=== PATIENT | male | born 1960 | race Caucasian/White ===

== ENCOUNTER 2017-07-18 05:17 | Day surgery (SDC) | payer OTHER ==
[~2017-07-18] VITALS: Ht 172.7 cm; Wt 109.8 kg
--- NOTE | ~2017-07-18 | O ---
[facility] [place] [address] OPERATIVE REPORT Name: HOWARD PEDERSEN Abby Room #: DEP [facility].#: [id number] Admission: 07/18/17 Attend Phys: Dereje Wright MD Discharge: 07/18/17 Date of : 64 Report #: [id number] THIS REPORT FOR: //name// CC: David Harp DO Luis Eduardo Dereje Wright DATE OF SERVICE: 07/18/2017 PREOPERATIVE DIAGNOSIS: Right lower lid lesion. POSTOPERATIVE DIAGNOSES: Right lower lid lesion with nasolacrimal duct obstruction of common canaliculus, extensive nasal septal perforation. DIRECTOR IT PROJECT: None. ANESTHESIA: General. PROCEDURE: Excision of lesion of right lower lid with flap repair, nasal surgical video endoscopy. SURGEON: Dereje Wright M.D. INDICATIONS FOR SURGERY: This pleasant 57-year-old HIV positive gentleman has a mass in his medial right lower lid directly inferior to his inferior canaliculus that appears to be a sudoriferous inclusion cyst and not dacryocystitis. He presents today for excision of this lesion with potential recanalization of his lacrimal outflow tract with nasal surgical video endoscopy if the tract truly involves the tear drainage apparatus. Informed consent was obtained to include but not limited to the potential risk for loss of vision, bleeding, infection, failure to improve the problem, the potential need for further surgery or treatment. DESCRIPTION OF PROCEDURE: The patient was taken to the operating room where the right medial canthal area was anesthetized with Xylocaine with epinephrine, mixed with Marcaine and Wydase. The right lateral wall of the nose was similarly anesthetized. The nose was packed with Afrin soaked cottonoids on the right side. The inferior punctum was then dilated with a punctum dilator. A size 1 Duenas probe was then passed through the punctum and through the horizontal canaliculus until it met a hard stop at the common canaliculus. The common canaliculus appeared to be completely occluded. The superior punctum was dilated and the same finding was observed. Namely that the lacrimal apparatus was completely [facility] [address] [place] [address] OPERATIVE REPORT Name: NUVIAHOWARD Abby Room #: DEP [facility]..#: [id number] Admission: 07/18/17 Attend Phys: Dereje Wright MD Discharge: 07/18/17 Date of : 64 Report #: [id number] obstructed. The patient's initial complaint concerned the mass, he does not complain of tearing. So the decision was made to excise the lesion and repair of that defect. The lesion was then approached transconjunctivally. It was filled with cloudy, but not infected material such as one would expect to see in an inclusion cyst. The lesion after excision was dried with pinpoint monopolar cautery. The flap was then advanced and closed posteriorly. It was left open at the inferior punctum, which was enlarged, to allow the tract to drain as the lesion was going to recollect. The cottonoids were removed from the nose and the nasal vault inspected. A large anteriorly placed nasal septal perforation was visible. Extensive injection of his nasal mucosa was encountered throughout. There was no mass in the area of the middle or inferior meatus. The wounds were then cleaned and dressed with erythromycin ointment and the patient subsequently transported to the recovery area having tolerated the procedure well. <ELECTRONICALLY SIGNED> By: Dereje Wright MD 07/25/17 0614 1533 1614 Dereje Wright MD /nt
--- NOTE | ~2017-07-18 | EKG ---
[address] [address] ELECTROCARDIOGRAM REPORT Name: HOWARD PEDERSEN Room #: 150-4 [facility]#: [id number] Admission: 07/18/17 Attend Phys: Dereje Wright MD Discharge: Date of : 64 Report #: [id number] THIS REPORT FOR: //name// [facility] Test Date: 2017-07-18 Test Time: 13:23:57 Pat Name: HOWARD PEDERSEN Department: Room: 150 Gender: M Scheduling Analyst: GEMMA : 1960 Requested By: Dereje Wright Order Number: [id number] MD: Toni Ramirez Measurements Intervals [place] Rate: 64 P: 78 MI: 132 QRS: 36 QRSD: 101 T: 12 QT: 397 QTc: 410 Interpretive Statements Sinus rhythm Probable left atrial enlargement No previous ECG available for comparison Electronically Signed On 07-18-2017 15:07:20 [employer]AT SHE[employer] by Toni Ramirez [email or web address] <ELECTRONICALLY SIGNED> By: Toni Ramirez MD 07/18/17 1507 1323 1323 Toni Ramirez MD /LILLY
--- NOTE | ~2017-07-18 | S ---
[facility] [place] [address] SURGICAL PATH RPT PROCEDURE Name: HOWARD WEBB Abby Room #: DEP [facility] MCe.#: [id number] Admission: 07/18/17 Date of : 64 Discharge: 07/18/17 Report #: [id number] Path Case #: [id number] PATHOLOGY REPORT COLLECTION DATE: 07/18/2017 RECEIVED DATE: 07/18/2017 SUBMITTING PHYS: Dr. Dereje Wright OTHER PHYS: Dr. Cheo Harp, SPECIMEN(S) RECEIVED: A.R lower lid * * * * * * * * * * * * FINAL DIAGNOSIS: Lesion right lower lid, biopsy: - Mild chronic inflammation and reactive surface epithelium. (Please see comment) - Negative for dysplasia or malignancy. (IUV:abbie; 07/19/2017) COMMENT: Examination shows reactive squamous epithelium as well as conjunctival epithelium with mild chronic inflammation within the stroma. There is no cyst present. The operative procedure note mentions "a sudoriferous inclusion cyst". There is no cyst identified within the sample. There are no viral inclusions, or parasitic organisms identified. There are no granulomata present. Findings are reactive. (IUV:abbie; 07/19/2017) PATHOLOGIST: Paulette Hernandez M.D. REPORT ELECTRONICALLY SIGNED BY: Paulette Hernandez M.D. DATE/TIME: 07/19/2017 15:43 * * * * * * * * * * * * GROSS PATHOLOGY: The specimen is received in formalin, labeled "Howard Webb and lesion right lower lid", are two whatley soft tissues 0.2 cm in greatest dimension each, each inked black and entirely submitted in A1. (SWS; 07/18/2017) CLINICAL HISTORY: Lesion right lower lid INITIAL CPT CODE(S): [facility] [place] [address] SURGICAL PATH RPT PROCEDURE Name: HOWARD WEBB Room #: DEP [facility] Daniele#: [id number] Admission: 07/18/17 Date of : 64 Discharge: 07/18/17 Report #: [id number] Path Case #: [id number]; [id number] Professional services performed by [facility] [address], [place] [address] Technical services performed by [facility] at [address] [place] [address], [place] [address]. [facility] [address] [place] [address] PHONE: [phone] DIRECTOR: Jeet Anglin M.D. * * * END OF REPORT * * *
[~2017-07-18 05:17] MED LIST: ANDROGEL75 GM TOP; ASPIRIN81 M2 PO; CENTRUM SILVER1 EAC2 PO; ESCITALOPRAM OX10 MG PO; FLONASE 0.05%50 MCG NASAL; LAMIVUDINE-ZID1 EACH PO; LISINOPRIL40 MG PO; LOTEMAX5 ML OPHTHALMIC; NEVIRAPINE ER400 MG PO; OFLOXACIN5 ML OPHTHALMIC; PEPCID20 MG PO; TIMOLOL MA0.25 %/52 OPHTHALMIC; WELLBUTRIN SR150 MG PO; ZOCOR20 MG PO; ZYRTEC10 M5 PO
[2017-07-18 13:56] VITALS: BP 110/76
== END 2017-07-18 16:11 | disposition home or self-care (01) ==
LOC: OR 05:17 → TBA 05:18 → OR 10:55
DX: H01.8 Other specified inflammations of eyelid (principal); H04.551 Acquired stenosis of right nasolacrimal duct; J34.89 Other specified disorders of nose and nasal sinuses; I10 Essential (primary) hypertension; E78.5 Hyperlipidemia, unspecified; K21.9 Gastro-esophageal reflux disease without esophagitis; F32.89 Other specified depressive episodes; F41.8 Other specified anxiety disorders; Z98.42 Cataract extraction status, left eye; Z96.1 Presence of intraocular lens; Z87.891 Personal history of nicotine dependence; Z88.2 Allergy status to sulfonamides; Z79.82 Long term (current) use of aspirin; Z79.899 Other long term (current) drug therapy; Z98.890 Other specified postprocedural states
CPT/HCPCS: 50010; 50101; 50398; 51636; 56528; 70005

== ENCOUNTER 2018-02-23 05:22 | Day surgery (SDC) | payer OTHER ==
[~2018-02-23] VITALS: Ht 172.7 cm; Wt 108.9 kg
--- NOTE | ~2018-02-23 | O ---
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 PROCEDURE: Right incisional dacryocystorhinostomy with nasal surgical video endoscopy and silicone intubation. SURGEON: Dereje Wright M.D. COATING MACHINE OPERATOR: None. ANESTHESIA: General. COMPLICATIONS: None. INDICATIONS FOR SURGERY: This pleasant 58-year-old gentleman who previously presented with a mass in his right lower lid that was cystic in nature and thought to potentially be related to his lacrimal outflow tract. That mass was excised and marsupialized only to find that postoperatively his lacrimal outflow tract appeared to be completely obstructed. He presents today for a right-sided lacrimal procedure in order to attempt to establish patent tear drainage for him. Informed consent was obtained to include but not limited to the potential risk for loss of vision, bleeding, infection, failure to improve the problem, the potential need for further surgery or treatment. DESCRIPTION OF PROCEDURE: The patient was taken to the operating room where general anesthesia was administered. The right medial canthal area and the right lateral wall of the nose were generously infiltrated with Xylocaine mixed with Marcaine and Wydase. The patient was subsequently prepped and draped in the usual sterile fashion. The right side of the nose was then packed with Afrin-soaked cottonoids. The superior punctum was then dilated. Interestingly, the punctum itself appeared to be completely stenosed. The tract could not be passed with a Duenas probe. The decision was made then to do an incisional dacryocystorhinostomy. [facility] [address] [place] [address] OPERATIVE REPORT Name: HOWARD PEDERSEN Room #: DEP [facility]..#: [id number] Admission: 02/23/18 Attend Phys: Dereje Wright MD Discharge: 02/23/18 Date of : 64 Report #: [id number] An incision was then made over the anterior lacrimal crest and drawn down to the periosteum. Hemostasis was achieved with diligent pinpoint monopolar cautery as it was throughout the case. The lacrimal sac was then distracted out of the lacrimal sac fossa. The normally thin bone of the lacrimal sac fossa was not present. Multiple rongeur bites were used to create an osteotomy based over the anterior portion of the lacrimal sac fossa. The nasal mucosa, which was incredibly friable, was injected with the same anesthetic mixture used at the beginning of the surgery. A Davis tube was then passed through the superior canalicular system into that blunt pouch. It was then sharply incised as the lacrimal sac was then opened and the lacrimal sac itself incised to allow the Davis tube to enter that space. The cottonoids were removed from the nose, then a groove director placed transnasally. The Davis tube was then passed into the nose over the groove director. The inferior canaliculus was also completely obliterated. It was fabricated in the same manner with a Davis tube being passed transnasally on the groove director there as well. Neither canaliculus was patent, which portends a poor prognosis for good lacrimal outflow drainage postoperatively. The anterior flaps were then closed with interrupted 4-0 chromic suture. The subcutaneous structures were closed with interrupted 4-0 chromic suture. The skin was closed with interrupted 6-0 plain gut suture. The video endoscope was then brought into the field. The nasal vault inspected. There was a very large nasal septal perforation. The opening of the ostium, however, anterior to the insertion of the middle turbinate appeared to be adequate. The Davis tubes were then secured to themselves with 3 square throws and then to the lateral wall of the nose with one 5-0 Prolene suture. The patient was then transported to the recovery area having tolerated the procedure well with no anesthetic or operative complications being noted. <ELECTRONICALLY SIGNED> By: Dereje Wright MD 03/06/18 0626 1035 1237 Dereje Wright MD /nt
[2018-02-23 12:55] VITALS: BP 135/73
== END 2018-02-23 11:26 | disposition home or self-care (01) ==
LOC: OR 05:22 → TBA 05:22 → OR 09:51
DX: H04.551 Acquired stenosis of right nasolacrimal duct (principal); I10 Essential (primary) hypertension; E78.5 Hyperlipidemia, unspecified; F32.9 Major depressive disorder, single episode, unspecified; F41.9 Anxiety disorder, unspecified; K21.9 Gastro-esophageal reflux disease without esophagitis; Z98.890 Other specified postprocedural states; Z87.891 Personal history of nicotine dependence; Z98.42 Cataract extraction status, left eye; Z79.899 Other long term (current) drug therapy; Z88.2 Allergy status to sulfonamides; Z79.82 Long term (current) use of aspirin
CPT/HCPCS: 50010; 50101; 50386; 50398; 51636; 51777; 56528; 56531; 62110; 62900; 64037; 70005